=== PATIENT | female | born 1975 | race Caucasian/White ===

== ENCOUNTER → 2018-12-06 07:02 | Day surgery (SDC) | payer BC ==
[~2018-12-06 07:02] MED LIST: Acetaminophen TAB* 325 MG PO PRN; Buffered Lidocaine 1% SYRIN* 1 ML/SYRINGE INTRADERM ONE; Dexamethasone IV* 4 MG/ML 1 ML (4 MG) ONE; DiMENhydriNATE IV* 50 MG/ML VIAL IV PUSH PRN; HYDROmorphone INJ1* 1 MG/ML SYRINGE IV PRN; Ketorolac INJ* 30 MG/ML 1 ML VIAL IV PRN; Lactated Ringers 1000 ML Bag* 1,000 ML IV SCH; Lidocaine 1% MPF ** 5 ML VIAL ONE; Midazolam* 1 MG/ML 2 ML VIAL (2 MG) ONE; Naloxone* 0.4 MG/ML 1 ML VIAL IV PRN; Ondansetron INJ* 2 MG/ML VIAL ONE; PROCHLORPERAZINE INJ 5 MG/ML 2 ML VIAL IV PRN; Propofol* 10 MG/ML 20 ML BTL ONE; ROPIVACAINE 5 MG/ML 30 ML BTL (0.5%) ONE; Ropivacaine 0.2% * 2 MG/ML VIAL ONE; ceFAZolin 2 GM in NS PREMIX(*) 2 GM/100 ML BAG IVPB ONE; fentaNYL* 50 MCG/ML 2 ML VIAL (100 MCG VIAL) IV PRN; fentaNYL* 50 MCG/ML 2 ML VIAL (100 MCG VIAL) ONE; oxyCODONE/Acetamin 5/325 MG* TAB PO PRN
[2018-12-06 11:20] VITALS: BP 114/71
--- NOTE | 2018-12-06 12:45 | OP ---
CC: PCP, Dr. Abraham * DATE OF OPERATION: 12/06/18 - [facility] DATE OF : 73 SURGEON: Niurka Hanson MD. [employer]RAFTING OFFICER: MIRZA Casas. ANESTHESIOLOGISTS: Dr. Cross and Dr. Guy. ANESTHESIA: General interscalene block. PRE-OP DIAGNOSIS: Right shoulder recurrent instability. POST-OP DIAGNOSIS: Right shoulder recurrent instability. OPERATIVE PROCEDURE: Right shoulder arthroscopy with anterior labral repair. COMPLICATIONS: None. ESTIMATED BLOOD LOSS: Minimal. IMPLANTS: Three 2.9 Bioraptors. INDICATIONS: Marlene Logan is a 43-year-old female who has had recurrent instability of the shoulders. She has failed conservative management. She has elected to proceed with surgical treatment. Risks and benefits of surgery were discussed in length including but not limited to bleeding; infection; damage to nerve, vessels, surrounding structures; wound nonhealing; persistent pain; need for further surgery; scarring; stiffness; incomplete relief of symptoms; risk of anesthesia; risk of arthritis; failure of the repair. DESCRIPTION OF PROCEDURE: The patient was greeted in the preoperative area by the attending surgeon. The correct extremity was marked and consent was confirmed. The patient underwent interscalene nerve block by the anesthesiologist after which she was brought back to the operating suite, was placed in the supine position on the operating table and then underwent general anesthesia and LMA intubation, after which she was placed in the left lateral decubitus position with all bony prominences well padded and secured with a pegboard. The right arm was draped unsterile with 10 pounds of traction. The right shoulder was then prepped and draped in the usual sterile fashion beginning with chlorhexidine soap, scrub, and alcohol wipe and a final prep with ChloraPrep. After appropriate surgical pause indicating side, site, procedure, and administration of antibiotics, the standard posterolateral portals was made sharply with an 11 blade. The scope was introduced into the joint. Joint was examined. There was obvious instability with grade 3 changes. The shoulder was dislocated at the time of the beginning of surgery. There was a moderate-sized Hill-Sachs lesion, which appeared to be engaging at that time, but was able to be reduced. The low anterior portals were made in an outside fashion and an 8.5 mm cannula was placed and then second cannula was placed superiorly in the interval, 5.5 mm cannula. Biceps was checked. There was some mild inflammation and irritation but generally looked okay. There was no obvious peel-back sign. Decision was made to leave this. Anterior labrum was obviously torn and displaced. The head was again subluxed anteriorly. There was positive drivethrough sign. After the cannulas were established, the lateral ragini was positioned to allow for distraction of the joint the elevator was then used to elevate the labrum, took care to preserve as much tissue as possible. Some of the capsules are bit patulous. The bone quality was not great. Once the labrum was elevated, the glenoid was then rasped using a red ball rasp as well as the double-sided rasp. The capsule was rasped as well. [place] placement began, beginning at around 5:30 position, a 2.9 Bioraptor was placed with excellent purchase. Suture passing device was then used to allow for inferior-superior capsular shift as well as repairing the labrum. This was repaired in a horizontal mattress configuration, tied down using arthroscopic knot tying technique. This helped to eliminate the drivethrough sign. Some tension was released on the lateral ragini. Second anchor was placed around the 4 :30 position in a similar fashion with excellent purchase. Again, the bone quality was not great. This was passed in a horizontal mattress fashion to allow for capsule and labrum to be restored, this was tied down. Then, a third anchor was placed at around 3 o'clock or 3:30 position with excellent purchase. Sutures were then passed in the simple fashion and then tied down. This restored the head to sit more appropriately in the socket. There was no evidence of engaging of the Hill-Sachs lesion anymore. The drive-through sign was eliminated. Final images were obtained with the lateral ragini removed. The head was sitting appropriately. The wound was copiously irrigated with sterile saline and the shoulder was thoroughly lavaged. The portals were closed with 3- 0 nylon. Sterile dressing was applied, a Cryo/Cuff and UltraSling were applied. She was awoken from anesthesia and transferred to the PACU in stable condition. PREOPERATIVE PLAN: She will be nonweightbearing in a sling for about 4 to 5 weeks. She will start therapy next week to decrease the risk of stiffness. I will see her back in 10 to 14 days. [id number]/[facility] #: [id number] [facility]
== END | disposition home or self-care (01) ==
LOC: OR 07:02
PROVIDERS: ATTEND Orthopaedic Surgery
DX: M25.311 Other instability, right shoulder (principal); G89.18 Other acute postprocedural pain
CPT/HCPCS: 81025; J0690; J1100; J2250; J2405; J2704; J2795; J3010